=== PATIENT | female | born 1980 | race Caucasian/White ===

== ENCOUNTER 2019-07-21 18:58 | Emergency (ER) | payer OTHER, SELFPAY ==
[2019-07-21 19:00] VITALS: BP 113/68; PULSE 90; RESP 16; TEMP 36.8; O2SAT 97; BMI 28.9
[2019-07-21] MEDS: Ondansetron ODT 4 MG Tablet PO (19:28)
[2019-07-21] MEDS: morphine 8 MG/ML Syringe IM (19:28)
--- NOTE | 2019-07-21 19:55 | ED.VISSUMM ---
- ER Visit Summary Date of Service: 07/21/19 Chief Complaint: Abdominal pain History of Present Illness: The patient is a [address] Chahal. She reports that ever since having her first child approximately a year ago she has had upper abdominal pain and swelling that is intermittent. She reports that it began again 2 hours ago. Is an aching pain is 10 of 10 at worst and 3 of 10 currently. Is worsened by picking things up. Is relieved by laying down. She denies any nausea, vomiting, diarrhea. Last bowel was yesterday. She is still passing flatus. She denies any other complaints. Physical Examination: Vitals: Stable. Afebrile. General: Well-nourished and well-developed. Head: Normocephalic atraumatic. Neck: Supple, no lymphadenopathy. No JVD. Nontender. Cardiovascular: Regular rate and rhythm. No murmurs. Respiratory: No respiratory distress. Clear to auscultation bilaterally. Abdominal: Soft, moderate tenderness to palpation to a ventral hernia that is just above her umbilicus. Nondistended, normal bowel sounds. No guarding, rebound, or peritoneal signs. Back: Nontender. Extremities: Nontender, no edema. Skin: Normal color, no rash. Neurologic: Alert and oriented ?3. Cranial nerves II through XII are intact. Normal strength and sensation. Psych: Normal affect. Emergency Department Course and Treatment: Patient was given a shot of morphine IM. She had ice placed to the area. This was reduced and she tolerated it well. Treatment Plan: Patient will be discharged instructions to follow-up with Dr. Estrada within 3 to 5 days for another exam. I did discuss with her that if this herniates again she is unable to reduce that she needs to return the emerge department. Disposition: To home in improved and stable condition. Impression: 1. Ventral hernia, reduced. This note was generated with [employer] dictation software. It may contain incorrect words, spelling, and punctuation that were not noted in review of the chart prior to signing ED Disposition - Plan for ED Patient: Instructions: ED Hernia Inguinal Prescriptions: Hydrocodone Bitart/Apap 5-325 [Morton 5MG-325MG] 1 tablet PO Q4H PRN PRN 2 Days #10 tablet PRN Reason: Pain Referrals: Namrata Chahal MD [Primary Care Provider] - Júnior Estrada MD [STAFF PHYSICIAN] - 3-5 Days
[2019-07-21 20:04] VITALS: BP 110/71; PULSE 71; RESP 14; O2SAT 99
== END 2019-07-21 20:08 | disposition home or self-care (01) ==
LOC: ED 19:48
PROVIDERS: Emergency Provider Emergency Medicine; PCP Pediatrics
DX: K43.9 Ventral hernia without obstruction or gangrene (principal)
CPT/HCPCS: 96372; 99283